=== PATIENT | male | born 1975 | race Caucasian/White ===

== ENCOUNTER 2020-01-31 12:07 | Emergency (ER) | payer OTHER ==
[~2020-01-31] VITALS: Ht 175.3 cm; Wt 106.6 kg
[2020-01-31] MEDS ORDERED: AMOXICILLIN 50500 M1 PO (12:14)
[2020-01-31] MEDS ORDERED: NORCO 5-325 TA1 EAC2 PO (13:17)
[2020-01-31 13:36] VITALS: BP 134/83
== END 2020-01-31 13:37 | disposition home or self-care (01) ==
LOC: M.ERS 12:07
DX: M54.5 Low back pain (principal); R10.2 Pelvic and perineal pain; W11.XXXA Fall on and from ladder, initial encounter; Y93.89 Activity, other specified; Y92.89 Other specified places as the place of occurrence of the external cause; Y99.8 Other external cause status